=== PATIENT | female | born 1990 | race Caucasian/White ===

== ENCOUNTER 2020-08-16 21:05 | Emergency (ER) | payer OTHER ==
[~2020-08-16] VITALS: Ht 170.2 cm; Wt 59.0 kg
[2020-08-16 21:15] VITALS: BP 120/70
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
[2020-08-16] MEDS ORDERED: NAPR-1164 PO (21:27)
[2020-08-16] MEDS ORDERED: CYCL5TAB PO (21:27)
[2020-08-16] MEDS ORDERED: KETOROLAC TROMETHAMINE INJ 60 MG/2 ML VIAL IM ONE (21:30)
[2020-08-16] MEDS ORDERED: KETOROLAC TROMETHAMINE INJ 30 MG/ML VIAL ONE (21:33)
--- NOTE | 2020-08-16 21:48 | NUR ---
Patient discharged to home in stable condition. Written and verbal after care instructions given. Patient verbalizes understanding of instruction.pt. ambulatory with a steady gait
== END 2020-08-16 21:48 | disposition home or self-care (01) ==
LOC: ER 21:10
DX: S13.4XXA Sprain of ligaments of cervical spine, initial encounter (principal); V49.49XA Driver injured in collision with other motor vehicles in traffic accident, initial encounter; Y93.89 Activity, other specified; Y92.488 Other paved roadways as the place of occurrence of the external cause; Y99.8 Other external cause status
CPT/HCPCS: 96372; 99283; J1885